=== PATIENT | female | born 1940 | race Two or more races ===

== ENCOUNTER 2024-01-15 05:20 | Day surgery (SDC) | payer OTHER ==
[2024-01-11 14:01] LABS: INR 1.03; PARTIAL THROMBOPLASTIN TIME 29.1 SECONDS (22.0-34.0)
[2024-01-11 14:39] LABS: PROTHROMBIN TIME 11.2 SECONDS (9.0-11.5)
[2024-01-11 15:07] VITALS: BP 189/79
[~2024-01-15] VITALS: Ht 152.4 cm; Wt 54.4 kg
[~2024-01-15 05:20] MED LIST: COZAAR100 MG PO; KAPSPARGO SPRI200 MG PO; LEVSIN0.125 MG PO; RESTORA CAPSUL1 EACH; VITAMIN D310 MCG/1 M PO
[2024-01-15] MEDS ORDERED: POVIDONE-IODINE 118 ML BOTT TOP ONE (08:00)
[2024-01-15] MEDS ORDERED: MORPHINE SULFATE 4 MG/ML VIAL IV PRN (09:15)
== END 2024-01-15 12:40 | disposition home or self-care (01) ==
LOC: CIR.AMB 05:20
PROVIDERS: ATTEND Student in an Organized Health Care Education/Training Program
DX: N84.0 Polyp of corpus uteri (principal); N95.0 Postmenopausal bleeding; Z88.2 Allergy status to sulfonamides